=== PATIENT | female | born 1940 | race Caucasian/White ===

== ENCOUNTER → 2018-08-27 | Outpatient (CLI) | payer MEDICARE ==
--- NOTE | 2018-08-27 10:29 | Diagnostic Imaging Report ---
INDICATION: Screening for osteoporosis. COMPARISON: None FINDINGS: The bone mineral density of hips and spine was measured. There are no prior studies available for comparison. The T score for the spine is -3.7. This indicates osteoporosis. The T score for the left femoral neck is -2.9 and for the right femoral neck -2.7. These values also fall within the range of osteoporosis. The total T score for the left hip is -1.8 and for the right hip -2.1. These values indicate osteopenia. AP Spine L1-L4: [BMD (g/cm2): 0.760] [T-Score: -3.7] [Z-Score: -2.0] [BMD Previous: N/A] [BMD % Change: N/A] LT Hip Neck: [BMD (g/cm2): 0.631] [T-Score: -2.9] [Z-Score: -1.0] LT Hip Total: [BMD (g/cm2):0.775] [T-Score:-1.8] [Z-Score: -0.2] [BMD Previous: N/A] [BMD % Change: N/A] RT Hip Neck: [BMD (g/cm2):0.656] [T-Score:-2.7] [Z-Score:-0.9] RT Hip Total: [BMD (g/cm2):0.737] [T-score:-2.1] [Z-Score:-0.5] [BMD Previous:N/A] [BMD % Change:N/A] *Indicates significant change from prior examination based on 95% confidence level. World Health Organization criteria for BMD interpretation classify patients as Normal (T-score at or above -1.0), Osteopenic (T-score between -1.0 and -2.5) or Osteoporotic (T-score at or below -2.5). LIMITATIONS AND MODIFICATION: None. FRACTURE RISK (FRAX SCORE): The ten year probability of (%): Major Osteoporotic Fracture: [20.7] Hip Fracture: [7.8] IMPRESSION: 1. There is osteoporosis of the spine and of both femoral necks. 2. The total T score for each hip falls within the range of osteopenia. 3. See below National Osteoporosis Foundation guidelines on when to potentially initiate pharmacologic therapy. Based on the National Osteoporosis Foundation Guidelines, pharmacologic treatment should be initiated in any of the following, unless clinical conditions suggest otherwise: * Any patient with prior fragility fracture of the hip or vertebrae. A spine fracture indicates 5X risk for subsequent spine fracture and 2X risk for subsequent hip fracture. * Osteoporosis (T-score <-2.5). * Postmenopausal women and men age 50 and older with low bone mass/osteopenia (T-score between -1.0 and -2.5) by DXA and 10-year major osteoporotic fracture greater than 20% or a 10-year probability of hip fracture greater than 3%. These fracture risks are supplied above in the FRAX score, if applicable. * Clinician judgement and/or patient preferences may indicate treatment for people with 10-year fracture probabilities above or below these levels. Dictated by: Dictated on workstation # [id number]
== END ==
LOC: RAD 08:56
PROVIDERS: ATTEND Family Medicine
DX: Z13.820 Encounter for screening for osteoporosis (principal); M81.0 Age-related osteoporosis without current pathological fracture; E55.9 Vitamin D deficiency, unspecified; M40.10 Other secondary kyphosis, site unspecified
CPT/HCPCS: 77080

== ENCOUNTER → 2020-03-25 | Outpatient (CLI) | payer MEDICARE | LOC: LABNPT 12:12 | PROVIDERS: ATTEND Family Medicine | DX: U07.1 COVID-19 (principal) | CPT/HCPCS: 87635 ==

== ENCOUNTER → 2021-08-02 | Outpatient (CLI) | payer MEDICARE ==
--- NOTE | 2021-08-02 09:36 | Diagnostic Imaging Report ---
INDICATION: Postmenopausal screening for osteoporosis COMPARISON: 08/27/2018 FINDINGS: AP Spine L1-L4: [BMD (g/cm2): 0.852] [T-Score: -2.9] [Z-Score: -1.2] [BMD Previous: 0.760] [BMD % Change: 12.1] LT Hip Neck: [BMD (g/cm2): 0.681] [T-Score: -2.6] [Z-Score: -0.5] LT Hip Total: [BMD (g/cm2):0.850] [T-Score:-1.3] [Z-Score: 0.3] [BMD Previous: 0.775] [BMD % Change: 9.7] RT Hip Neck: [BMD (g/cm2):0.701] [T-Score:-2.4] [Z-Score:-0.4] RT Hip Total: [BMD (g/cm2):0.788] [T-score:-1.7] [Z-Score:0.1] [BMD Previous:0.737] [BMD % Change:6.9] *Indicates significant change from prior examination based on 95% confidence level. World Health Organization criteria for BMD interpretation classify patients as Normal (T-score at or above -1.0), Osteopenic (T-score between -1.0 and -2.5) or Osteoporotic (T-score at or below -2.5). LIMITATIONS AND MODIFICATION: None. FRACTURE RISK (FRAX SCORE): The ten year probability of (%): Major Osteoporotic Fracture: [19.1] Hip Fracture: [6.7] IMPRESSION: 1. Osteoporosis. 2. There has been a statistically significant increase in BMD since prior exam, detailed above. 3. See below National Osteoporosis Foundation guidelines on when to potentially initiate pharmacologic therapy. Based on the National Osteoporosis Foundation Guidelines, pharmacologic treatment should be initiated in any of the following, unless clinical conditions suggest otherwise: * Any patient with prior fragility fracture of the hip or vertebrae. A spine fracture indicates 5X risk for subsequent spine fracture and 2X risk for subsequent hip fracture. * Osteoporosis (T-score <-2.5). * Postmenopausal women and men age 50 and older with low bone mass/osteopenia (T-score between -1.0 and -2.5) by DXA and 10-year major osteoporotic fracture greater than 20% or a 10-year probability of hip fracture greater than 3%. These fracture risks are supplied above in the FRAX score, if applicable. * Clinician judgement and/or patient preferences may indicate treatment for people with 10-year fracture probabilities above or below these levels. Dictated by: Dictated on workstation # [id number]
--- NOTE | 2021-08-02 12:42 | Diagnostic Imaging Report ---
PROCEDURE: US carotid duplex, bilateral. TECHNIQUE: Multiple real-time grayscale images were obtained over the carotid arteries in various projections, bilaterally. Additional spectral analysis and color Doppler duplex images were also obtained. INDICATION: Carotid stenosis. Hypertension. COMPARISON: None. FINDINGS: Right carotid circulation: The right common and internal carotid arteries are normal in course and caliber. Small amount of scattered atherosclerotic plaque is seen in the right carotid bulb and proximal right internal carotid artery. No hemodynamically significant stenosis is present. Left carotid circulation: The left common and internal carotid arteries are normal in course and caliber. Intimal thickening and atherosclerotic plaque is scattered in the left carotid system. No hemodynamically significant stenosis is present. Flow in the bilateral vertebral arteries is antegrade. IMPRESSION: 1. Mild atherosclerosis involving the bilateral carotid systems. 2. No sonographic evidence of hemodynamically significant stenosis based on flow velocity criteria. Parameters based on the consensus panel Ugarte-Scale and Doppler ultrasound criteria published December 2002, Radiology, Volume 229. DOPPLER (peak systolic velocity M/S Right Left CCA 0.75 1.11 ICA Proximal 1.03 0.82 ICA Mid 0.62 0.96 ICA Distal 0.72 1.02 RATIO 1.37 0.92 ECA 1.46 1.17 VERT 0.32 0.53 Dictated by: Dictated on workstation # [id number]
--- NOTE | 2021-08-02 13:16 | Diagnostic Imaging Report ---
INDICATION: Routine screening. COMPARISON: No prior mammograms are available for comparison. TECHNIQUE: 2D and 3D bilateral screening mammography was performed with CAD. FINDINGS: Scattered fibroglandular densities are identified bilaterally. There is a tiny nodular density in the upper and outer aspect of the right breast at mid depth. Additional views are recommended. The left breast is unremarkable. No suspicious calcifications are seen. The axillae are unremarkable. IMPRESSION: Right breast density. Additional views are recommended for further evaluation. ACR BI-RADS Category 0: Incomplete. (Needs additional imaging evaluation). Result letter will be mailed to the patient. Note: At least 10% of breast cancer is not imaged by mammography. Dictated by: Dictated on workstation # [id number]
== END ==
LOC: RAD 08:30
PROVIDERS: ATTEND Family Medicine
DX: Z12.31 Encounter for screening mammogram for malignant neoplasm of breast (principal); Z13.820 Encounter for screening for osteoporosis; M81.0 Age-related osteoporosis without current pathological fracture; I65.23 Occlusion and stenosis of bilateral carotid arteries; I10 Essential (primary) hypertension; Z78.0 Asymptomatic menopausal state
CPT/HCPCS: 77063; 77067; 77080; 93880

== ENCOUNTER → 2021-08-05 | Outpatient (CLI) | payer MEDICARE ==
--- NOTE | 2021-08-05 12:56 | Diagnostic Imaging Report ---
Indication: Right breast density. Patient presents for additional views. Correlation is made with screening mammogram from 08/02/2021. Unilateral right 2-D and 3-D diagnostic mammography was performed. This included spot compression CC and ML views as well as conventional 90 degree lateral views. Additional views show persistent tiny circumscribed density in the upper outer right breast approximately 7 cm from the nipple. This measures 3 mm in size. IMPRESSION: BI-RADS 0 Persistent tiny circumscribed density in the upper outer right breast 7 cm from the nipple. Further evaluation of this area with ultrasound is recommended and will be performed today. ACR BI-RADS Category 0: Incomplete. (Needs additional imaging evaluation). Result letter will be mailed to the patient. Note: At least 10% of breast cancer is not imaged by mammography. Dictated by: Dictated on workstation # [id number]
--- NOTE | 2021-08-05 13:20 | Diagnostic Imaging Report ---
Indication: Right breast density. Correlation is made with a diagnostic mammogram earlier the same day and screening mammogram from 08/02/2021. Sonographic interrogation of the upper outer right breast demonstrates a tiny cyst at the 10:00 location approximately 5 cm from the nipple measuring 3 mm in size. This corresponds to the mammographic density. This has benign features. No concerning sonographic finding is seen. IMPRESSION: BI-RADS Category 2. Tiny cyst upper outer right breast corresponding to the mammographic density. The patient may return to routine annual screening mammography. ACR BI-RADS Category 2: Benign findings. Result letter will be mailed to the patient. Note: At least 10% of breast cancer is not imaged by mammography. Dictated by: Dictated on workstation # [id number]
== END ==
LOC: RAD 12:45
PROVIDERS: ATTEND Nurse Practitioner Family
DX: N60.01 Solitary cyst of right breast (principal)
CPT/HCPCS: 76642; 77065; G0279

== ENCOUNTER → 2022-05-04 | Outpatient (CLI) | payer MEDICARE ==
--- NOTE | 2022-05-04 19:33 | Diagnostic Imaging Report ---
CLINICAL INDICATION: Patient having bilateral hand numbness and right-sided neck pain which is chronic. EXAM: MRI of the cervical spine performed without IV contrast. Sequences include sagittal T2, sagittal T1, sagittal T2 fat-sat, and axial T2. COMPARISON: None. FINDINGS: There is no acute cervical spine fracture or dislocation. There is minimal Modic type II degenerative signal changes involving the anterior aspect of the upper thoracic spine with associated degenerative spurs. Limited visualization of the posterior fossa is unremarkable. Cervical spinal cord has normal cord caliber with no abnormal signal. C1-C2: There is no significant central canal stenosis. C2-C3: There is severe left facet arthropathy/hypertrophy. There is moderate left neural foramen narrowing. There is no significant central canal or right neural foramen narrowing. C3-C4: There is severe left facet arthropathy/hypertrophy and mild right facet arthropathy. There is severe left neural foramen narrowing and mild to moderate right neural foramen narrowing. There is no significant central canal stenosis. There is ligamentum flavum buckling. C4-C5: There is severe left facet arthropathy/hypertrophy and mild right facet arthropathy. There is ligamentum flavum buckling. There is no significant central canal stenosis. There is moderate bilateral neural foramen narrowing. C5-C6: There is ligamentum flavum buckling. There is a small posterior disk bulge. There is no significant central canal narrowing. There is moderate bilateral facet arthropathy. There is at least moderate bilateral neural foramen narrowing. C6-C7: There is mild diffuse disk bulge and minimal ligamentum flavum buckling. There is no significant central canal narrowing. There is mild central canal narrowing. There is moderate left neural foramen narrowing and at least mild right neural foramen narrowing. C7-T1: There is grade 1 anterolisthesis of C7 on T1. There is a small posterior disk bulge. There is moderate bilateral facet arthropathy. There is no significant central canal or neural foramen narrowing. 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 Dictated by: Dictated on workstation # [id number]
== END ==
LOC: RAD 12:32
PROVIDERS: ATTEND Family Medicine
DX: M48.02 Spinal stenosis, cervical region (principal); M47.812 Spondylosis without myelopathy or radiculopathy, cervical region; M24.28 Disorder of ligament, vertebrae; M50.322 Other cervical disc degeneration at C5-C6 level; M43.13 Spondylolisthesis, cervicothoracic region
CPT/HCPCS: 72141

== ENCOUNTER → 2022-08-09 | Outpatient (CLI) | payer MEDICARE ==
--- NOTE | 2022-08-10 10:12 | Diagnostic Imaging Report ---
INDICATION: Routine screening Comparison is made with prior mammogram from 07/25/2021. 2-D and 3-D bilateral screening mammography was performed with CAD. The current study was also evaluated with a Computer Aided Detection (CAD) system. Scattered fibroglandular densities are identified bilaterally. The parenchymal pattern is stable. No dominant mass or malignant-appearing microcalcifications are seen. Axillae are unremarkable. IMPRESSION: BI-RADS Category 1 No mammographic features suspicious for malignancy are identified. ACR BI-RADS Category 1: Negative. Result letter will be mailed to the patient. Note: At least 10% of breast cancer is not imaged by mammography. Dictated by: Dictated on workstation # [id number]
== END ==
LOC: RAD 14:54
PROVIDERS: ATTEND Family Medicine
DX: Z12.31 Encounter for screening mammogram for malignant neoplasm of breast (principal); E03.9 Hypothyroidism, unspecified; N95.1 Menopausal and female climacteric states; M81.0 Age-related osteoporosis without current pathological fracture
CPT/HCPCS: 77063; 77067